=== PATIENT | male | born 1940 | race Caucasian/White ===

== ENCOUNTER 2016-12-08 14:15 | Emergency (ER) | payer MEDICARE, MEDICAID ==
[2016-12-08 14:57] VITALS: BP 111/71
--- NOTE | 2016-12-08 15:36 | EDM.PDOCBH ---
ED HPI GENERAL MEDICAL PROBLEM - General Chief Complaint: Behavioral/Psych Stated Complaint: combative Time Seen by Provider: 12/08/16 15:20 Source of Information: Reports: EMS, Retirement Records History Limitations: Denies: Combative/Threatening - History of Present Illness INITIAL COMMENTS - FREE TEXT/NARRATIVE: Pt resting very quietly on ER cart. Very cooperative and pleasant at this time. Denies any pain. Willingly allows me to examine the pt without any difficulty. States he doesn't remember what happened earlier. He relates to the nursing staff that "they think they are the boss and wants me to do what they want. I'm full bloodied japanese". No recent falls to be concerned with. Reports from [facility] for recent MRI of head is normal and he has had neuropsych consult that found dementia and inability to make own decisions noted. - Related Data Allergies Allergy/AdvReac Type Severity Reaction Status Date / Time No Known Allergies Allergy Verified 12/08/16 14:20 Home Meds: Home Meds Acetaminophen [Tylenol] 650 mg PO BID 12/08/16 [History] Albuterol/Ipratropium [DuoNeb 3.0-0.5 MG/3 ML] 3 ml NEB Q4HRRT PRN 12/08/16 [ History] Aspirin [Halfprin] 81 mg PO BRK 12/08/16 [History] Benazepril HCl [Lotensin] 40 mg PO DAILY 12/08/16 [History] Folic Acid 1 mg PO DAILY 12/08/16 [History] Metoprolol Succinate [Toprol XL] 50 mg PO DAILY 12/08/16 [History] Pantoprazole Sodium [Protonix] 40 mg PO DAILY 12/08/16 [History] Thiamine Mononitrate [Vitamin B-1] 100 mg PO DAILY 12/08/16 [History] amLODIPine [Norvasc] 10 mg PO DAILY 12/08/16 [History] atorvaSTATin [Lipitor] 20 mg PO BEDTIME 12/08/16 [History] Past Medical History Cardiovascular History: Reports: High Cholesterol, Hypertension Respiratory History: Reports: COPD, Pneumonia, Recurrent, Pneumothorax Gastrointestinal History: Reports: GERD Neurological History: Reports: Alzheimers Disease, CVA 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, Alzheimers Disease , Dementia Social & Family History - Family History Family Medical History: Noncontributory - Tobacco Use Smoking Status *Q: Former Smoker Used Tobacco, but Quit: Yes Month Tobacco Last Used: 5 years ago - Living Situation & Occupation Living situation: Reports: Single, Extended Care Facility Occupation: Retired ED ROS GENERAL - Review of Systems Review Of Systems: See Below Constitutional: Reports: No Symptoms HEENT: Reports: No Symptoms Respiratory: Reports: No Symptoms Cardiovascular: Reports: No Symptoms GI/Abdominal: Reports: No Symptoms Musculoskeletal: Reports: No Symptoms Skin: Reports: No Symptoms. Denies: Rash Neurological: Denies: Headache Psychiatric: Reports: Other (very calm at this time and cooperative.) ED EXAM, BEHAVIORAL HEALTH - Physical Exam Exam: See Below Exam Limited By: Altered Mental Status General Appearance: Alert, No Apparent Distress Ears: Normal External Exam, Normal [place] Nose: Normal Inspection Throat/Mouth: Normal Inspection, Normal Oropharynx Head: Atraumatic, Normocephalic Respiratory/Chest: No Respiratory Distress, Lungs Clear, Normal Breath Sounds, Chest Non-Tender Cardiovascular: Regular Rate, Rhythm GI/Abdominal: Normal Bowel Sounds, Soft, Non-Tender Extremities: Normal Inspection, No Pedal Edema Neurological: Alert, Disoriented to Time Psychiatric: Other (very quiet. Shakes head to most questions. Will answer short sentences.) Skin Exam: Warm, Dry COURSE, BEHAVIORAL HEALTH COMP - Course Vital Signs: Last Vital Signs Temp 98.2 F 12/08/16 14:33 Pulse 76 12/08/16 14:33 Resp 18 12/08/16 14:33 BP 111/71 12/08/16 14:33 Pulse Ox 97 12/08/16 14:33 Orders, Labs, Meds: Laboratory Tests 12/08/16 12/08/16 12/08/16 Range/Units 14:39 14:39 14:39 WBC 9.6 (5.0-10.0) 10^3/uL RBC 4.35 L (4.50-6.00) 10^6/uL Hgb 14.2 (14.0-18.0) g/dL Hct 41.4 (40.0-54.0) % MCV 95.2 H (82.0-94.0) fL MCH 32.6 H (27.0-32.0) pg MCHC 34.3 (33.0-38.0) g/dL RDW Coeff of Lobo 14.9 (11.0-15.0) % Plt Count 297 (150-400) 10^3/uL Neut % (Auto) 69.1 (35-85) % Lymph % (Auto) 20.7 (10-55) % [place] % (Auto) 7.8 (0-16) % Eos % (Auto) 2.0 (0-5) % Baso % (Auto) 0.4 (0-3) % Neut # (Auto) 6.64 (1.80-7.00) 10^3/uL Lymph # (Auto) 1.99 (1.00-4.80) 10^3/uL [place] # (Auto) 0.75 (0.00-0.80) 10^3/uL Eos # (Auto) 0.19 (0.00-0.45) 10^3/uL Baso # (Auto) 0.04 10^3/uL Sodium 142 (136-145) mEq/L Potassium 4.1 (3.5-5.0) mEq/L Chloride 105 (98-106) mEq/L Carbon Dioxide 29 (21-32) mmol/L BUN 19 H (7-18) mg/dL Creatinine 1.3 (0.7-1.3) mg/dL Est Cr Clr Drug Dosing 40.62 mL/min Estimated GFR (MDRD) 54 L (>=60) mL/min Glucose 105 H (75-99) mg/dL Calcium 9.0 (8.4-10.1) mg/dL Urine Color Dark yellow (YELLOW) Urine Appearance Clear (CLEAR) Urine pH 6.0 (4.5-8.0) Ur Specific [place] 1.020 (1.003-1.020) Urine Protein Trace H (NEGATIVE) mg/dL Urine Glucose (UA) Negative (NEGATIVE) mg/dL Urine Ketones Negative (NEGATIVE) mg/dL Urine Occult Blood Negative (NEGATIVE) Urine Nitrite Negative (NEGATIVE) Urine Bilirubin Negative (NEGATIVE) Urine Urobilinogen 1.0 (0.2-1.0) EU/dL Ur Leukocyte Esterase Negative (NEGATIVE) Urine RBC Not seen (0-5) /HPF Urine WBC Not seen (0-5) /HPF Ur Squamous Epith Cells Few H (NOT SEEN) /HPF Urine Bacteria Few H (NOT SEEN) /HPF Urine Mucus Few H (NOT SEEN) /HPF Departure - Departure Time of Disposition: 15:45 Disposition: Home, Self-Care 01 Clinical Impression: Dementia Qualifiers: Dementia type: unspecified type Dementia behavioral disturbance: with behavioral disturbance Qualified Code(s): F03.91 - Unspecified dementia with behavioral disturbance - Discharge Information Referrals: Nikolai Badillo MD [Primary Care Provider] - Forms: ED Department Discharge Additional Instructions: Start risperdal 0.25mg twice a day orally Keep psych referral that is scheduled 12/18 - Problem List & Annotations (1) Dementia SNOMED Code(s): 63603003 Code(s): F03.90 - UNSPECIFIED DEMENTIA WITHOUT BEHAVIORAL DISTURBANCE Status: Acute Priority: High Qualifiers: Dementia type: unspecified type Dementia behavioral disturbance: with behavioral disturbance Qualified Code(s): F03.91 - Unspecified dementia with behavioral disturbance - Problem List Review Problem List Initiated/Reviewed/Updated: Yes
== END 2016-12-08 18:29 | disposition home or self-care (01) ==
LOC: CC.ED 14:15
DX: F03.91 Unspecified dementia, unspecified severity, with behavioral disturbance (principal); E78.00 Pure hypercholesterolemia, unspecified; I10 Essential (primary) hypertension; J44.9 Chronic obstructive pulmonary disease, unspecified; Z87.01 Personal history of pneumonia (recurrent); K21.9 Gastro-esophageal reflux disease without esophagitis; Z87.891 Personal history of nicotine dependence; Z79.899 Other long term (current) drug therapy
CPT/HCPCS: 36415; 80048; 81001; 85025; 99284

== ENCOUNTER 2016-12-21 11:10 | Emergency (ER) | payer OTHER, MEDICARE, MEDICAID ==
[2016-12-21 11:42] LABS: CHLORIDE,CL 106 mEq/L (98-106); SODIUM,NA 143 mEq/L (136-145)
[2016-12-21 11:52] VITALS: BP 140/88
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
== END 2016-12-21 13:00 ==
LOC: CC.ED 11:10
DX: F03.91 Unspecified dementia, unspecified severity, with behavioral disturbance (principal); I10 Essential (primary) hypertension; E78.00 Pure hypercholesterolemia, unspecified; J44.9 Chronic obstructive pulmonary disease, unspecified; K21.9 Gastro-esophageal reflux disease without esophagitis; Z87.891 Personal history of nicotine dependence; Z87.01 Personal history of pneumonia (recurrent)
CPT/HCPCS: 36415; 80053; 81001; 85025; 99284